=== PATIENT | female | born 1955 | race Caucasian/White ===

== ENCOUNTER → 2017-04-12 | Outpatient (CLI) | payer MEDICARE, MEDICAID ==
[~2017-04-12] MED LIST: ALPRAZOLAM1 MG PO; BACLOFEN 10MG T10 MG PO; CARVEDILOL 25MG25 MG PO; GEMFIBROZIL600 M1 PO; HYDROCODONE/ACE1 TA5 PO; LIPITOR40 MG PO; LISINOPRIL40 MG PO; METFORMIN HCL1000 MG PO; METOPROLOL50 MG PO; MOBIC15 MG PO; PREMARIN 0.3MG0.3 MG PO
--- NOTE | 2017-04-13 14:18 | RADIOLOGY REPORT PS360 ---
PROCEDURE: 2-D M-mode and color Doppler study INDICATIONS FOR THE TEST: Chest pain COPD+ Heart Murmur+ Tobacco Smoking Palpitations+ Fatigue+ Syncope Edema Hypertension+Diabetes Mellitus+ Rheumatic Fever+ SOB+PATRICK+Obesity+Hyperlipidemia+ Family History HD+ Additional History PATIENT INFORMATION HEIGHT: 65 WEIGHT: 285 GENDER: Female B/P: 155/65 2-D/M-MODE INTERPRETATION: 2-D MEASUREMENTS OBSERVED VALUES IN CMS Right Ventricular Dimension (RVDd) 2.8 Interventricular Septum (Thickness)(IVsd) 1.1 Left Ventricular Internal Dimensions(LVIDd) 3.6 Left Ventricular Posterior Wall (Thickness)(LVPWd) 1.1 Aortic Root 2.0 Aortic Cusp Separation 2.0 Left Atrial Dimensions (LAD) 3.7 2D 1. Left atrium is mildly enlarged, left ventricle is normal size, mild concentric left ventricular hypertrophy, visually estimated ejection fraction 55% with no obvious regional wall motion abnormality. 2. The right atrium is normal size, right ventricle is mildly enlarged with normal contractility. 3. The aortic valve is minimally thickened and calcified. 4. The mitral and tricuspid valve leaflets are minimally thickened. 5. The pulmonic valve is poorly visualized. 6. No significant pericardial effusion noted. DOPPLER INTERROGATION: Doppler interrogation of the aortic mitral and tricuspid valvular presence of mild mitral and tricuspid regurgitation, tricuspid and jet velocity insufficient for calculation of the right ventricular systolic pressure, diastolic parameters are inconclusive. CONCLUSION: 1. Mildly enlarged left atrium, normal left ventricular size, mild concentric left ventricular hypertrophy, visually estimated ejection fraction 55% with no obvious regional wall motion abnormality, diastolic parameters are inconclusive. 2. Mild mitral and tricuspid regurgitation. 3. No significant pericardial effusion noted.
== END ==
LOC: RT 08:00
DX: R06.02 Shortness of breath (principal); R60.9 Edema, unspecified; I50.30 Unspecified diastolic (congestive) heart failure; I11.9 Hypertensive heart disease without heart failure